=== PATIENT | female | born 2005 | race African-American/Black ===

== ENCOUNTER 2024-02-15 02:54 | Emergency (ER) | payer MEDICAID ==
[~2024-02-15] VITALS: Ht 170.2 cm; Wt 81.9 kg
[2024-02-15] MEDS ORDERED: PANT40TA2 PO (04:13)
[2024-02-15 04:18] VITALS: BP 113/73; PULSE 57; RESP 16; TEMP 97.6; O2SAT 100
== END 2024-02-15 05:00 | disposition home or self-care (01) ==
LOC: ER 02:54
DX: K29.70 Gastritis, unspecified, without bleeding (principal); R11.15 Cyclical vomiting syndrome unrelated to migraine; K59.00 Constipation, unspecified; J45.909 Unspecified asthma, uncomplicated; F12.10 Cannabis abuse, uncomplicated; F10.10 Alcohol abuse, uncomplicated
CPT/HCPCS: 74176

== ENCOUNTER 2024-05-30 08:06 | Emergency (ER) | payer MEDICAID, SELFPAY ==
[~2024-05-30] VITALS: Ht 167.6 cm; Wt 87.2 kg
[~2024-05-30 08:06] MED LIST: PANT40TA2 PO
--- NOTE | 2024-05-30 08:43 | ED.PDOC ---
LEAD NETWORK ARCHITECT HPI Comments 18Y F with PMHx asthma presents to ED for chief complaint nausea and vomiting since this morning. Pt states her LMP was 03/21/2024 and she has been experiencing morning sickness with mild cramping. Pt states she is unable to hold food down. Pt is currently taking vitamins but does not have LEAD NETWORK ARCHITECT yet. Chief Complaint: Nausea/Vomiting Time Seen by MD: 08:22 Reviewed Notes: Medications, Allergies Allergies: Coded Allergies: NO KNOWN ALLERGIES (Unverified , 03/22/14) Home Meds Active Scripts Pantoprazole Sodium Sesquihydr (Protonix) 40 Mg Tab, 40 MG PO DAILY, #30 TAB Prov:LOR SHAH MD 02/15/24 Information Source: Patient Mode of Arrival: Ambulatory Timing: Hours Severity: Mild Vaginal Discharge: None Vaginal Lesions: None Vaginal Mass: None Sexual Activity: Last Consensual Orr: Unknown Control: None History of: Current Blood Type: Unknown Symptoms of Possible : Nausea, Vomiting Associated Signs and Symptoms: N/V Past Medical History PAST MEDICAL HISTORY: Asthma Surgical History: Denies all surgeries ETHANOL QUALITY LEADER History: Denies all ETHANOL QUALITY LEADER Hx Family History Family History: Unknown Social History Smoker: Non-Smoker Alcohol: Denies ETOH Use Drugs: Denies Drug Use Lives In: Home Constitutional: denies: chills, diaphoresis, fatigue, fever, malaise, sweats, weakness, others EENTM: denies: blurred vision, double vision, ear bleeding, ear discharge, ear drainage, ear pain, ear ringing, eye pain, eye redness, hearing loss, mouth pain, mouth swelling, nasal discharge, nose bleeding, nose congestion, nose pain, photophobia, tearing, throat pain, throat swelling, voice changes, others Respiratory: denies: cough, hemoptysis, orthopnea, SOB at rest, shortness of breath, SOB with excertion, stridor, wheezing, others Cardiovascular: denies: chest pain, dizzy spells, diaphoresis, Dyspnea on exertion, edema, irregular heart beat, left arm pain, lightheadedness, palpitations, PND, syncope, others Gastrointestinal: reports: nausea, vomiting; denies: abdomen distended, abdominal pain, blood streaked bowels, constipated, diarrhea, dysphagia, d ifficulty swallowing, hematemesis, melena, poor appetite, poor fluid intake, rectal bleeding, rectal pain, others Genitourinary: reports: ; denies: abnormal vagina bleeding, burning, dyspareunia, dysuria, flank pain, frequency, hematuria, incontinence, pain, vagina discharge, urgency, others Neurological: denies: dizziness, fainting, headache, left sided numbness, left sided weakness, numbness, paresthesia, pre-existing deficit, right sided numbness, right sided weakness, seizure, speech problems, tingling, tremors, weakness, others Musculoskeletal: denies: back pain, gout, joint pain, joint swelling, muscle pain, muscle stiffness, neck pain, others Integumetry: denies: bruises, change in color, change in hair/nails, dryness, laceration, lesions, lumps, rash, wounds, others Allergic/Immunocompromised: denies: Difficulty Healing, Frequent Infections, Hives, Itching, others Hematologic/Lymphatic: denies: anemia, blood clots, easy bleeding, easy bruising, swollen glands, others Endocrine: denies: excessive hunger, excessive sweating, excessive thirst, excessive urination, flushing, intolerance to cold, intolerance to heat, unexplained weight gain, unexplained weight loss, others Psychiatric: denies: anxiety, bipolar disorder, depression, hopeless, panic disorder, schizophrenia, sleepless, suicidal, others All Other Systems: Reviewed and Negative Physical Exam General Appearance: Moderate Distress, Normal HEENT: Normal ENT Inspection, Pharynx Normal, TMs Normal Neck: Full Range of Motion, Non-Tender, Normal, Normal Inspection Respiratory: Chest Non-Tender, Lungs Clear, No Accessory Muscle Use, No Respiratory Distress, Normal Breath Sounds Cardiovascular: No Edema, No JVD, No Murmur, No Gallop, Normal Peripheral Pulses, Regular Rate/Rhythm Breast Exam: Deferred Gastrointestinal: No Organomegaly, Non Tender, No Pulsatile Mass, Normal Bowel Sounds, Soft Genitalia: Deferred Pelvic: Deferred Rectal: Deferred Extremities: No calf tenderness, Normal capillary refill, Normal inspection, Normal range of motion, Non-tender, No pedal edema Musculoskeletal : Apperance: Normal Neurologic: Alert, learning support resource room teacher II-XII nml as Tested, No Motor Deficits, Normal Affect, Normal Mood, No Sensory Deficits Cerebellar Function: Normal Reflexes: Normal Skin: Dry, Normal Color, Warm Peripheral Pulses: 3+ Radial (R), 3+ Radial (L) Lymphatic: No Adenopathy Was a procedure done? Was a procedure done?: No Differential Diagnosis (ETHANOL QUALITY LEADER) Vaginal Bleeding: - Complete, - Incomplete, - Inevitable, - Missed, - Threatened X-Ray, Labs, Meds, VS Vital Signs Date Time Temp Pulse Resp B/P (MAP) Pulse Ox O2 Delivery O2 Flow Rate FiO2 05/30/24 08:18 98.7 72 16 128/78 (95) 99 Lab Test 05/30/24 08:32 05/30/24 08:16 Range/Units Beta HCG, Quantitative 26854.6 H 1.5-4.2 mIU/mL Urine Color Yellow Yellow Urine Clarity Clear Clear Urine pH 6.0 5.0-9.0 Urine Specific [place] 1.027 1.001-1.035 Urine Protein Trace H Negative Urine Ketones 2+ H Negative Urine Blood Negative Negative /uL Urine Nitrite Negative Negative Urine Bilirubin Negative Negative Urine Urobilinogen Normal Negative mg/dL Urine Leukocyte Esterase Negative Negative /uL Urine RBC 3 0 - 4 /hpf Urine WBC 3 0 - 5 /hpf Urine Squamous Epithelial Cells Few <5 /hpf Urine Bacteria None seen None Seen /hpf Urine Mucus Few None Seen Urine Glucose Normal Normal mg/dL [place] [id number] Ph: [phone] DIAGNOSTIC IMAGING Diagnostic Imaging Report : [id number] Signed PATIENT: ASHLEY ROSALES ACCT: [id number] UNIT: [id number] : 2005 LOC: ER ROOM / BED: / AGE / SEX: 18 / F ADM STATUS: REG ER SERVICE [id number] ORDERING PHYSICIAN: CHERYL MILLARD MD PROCEDURE(s): OB4US - OB ULTRASOUND COMP LESS 14WKS REASON: cramping ORDER NUMBER(s): [id number], ACCESSION NUMBER(s): [id number] OB ULTRASOUND <14 WEEKS: HISTORY: cramping TECHNIQUE: Multiple real-time grayscale sonographic images of the pelvis with duplex Doppler color flow, spectral and M-mode analysis. TRANSDUCERS: Transabdominal and endovaginal FINDINGS: The retroverted uterus measures 7.6 x 5.6 x 5.8 cm. The cervix is not well-visualized. Right ovary measures 4.2 x 3.2 x 3.6 with normal Doppler color flow. Thick walled right ovarian cystic structure with ring of fire type vascularity, likely corpus luteum cyst. Left ovary measures 2.9 x 2.8 x 1.2 with normal Doppler color flow IUP single live fetus at 6 weeks 2 days average ultrasound age based on mean crown-rump length of 0.56 cm and gestational sac size of 1.76 cm heart rate detected at 117 beats per minute. Yolk sac is present. Amniotic fluid subjectively within normal limits. Gabriela-gestational space: Unremarkable There is trace free fluid posterior cul-de-sac and the region of the right adne xa. IMPRESSION: 1. IUP single live fetus 6 weeks 2 days AUA corresponding to an SARAH of 01/21/2025. 2. Free fluid adjacent to the right adnexa and in the posterior cul-de-sac. HS:Y ATED BY: MONICA SANTILLAN DO DICTATED DATE/TIME: 05/30/24 103 SIGNED BY: MONICA SANTILLAN DO SIGNED DATE/TIME: 05/30/24 103 CC: Patient alert. Complaining of nausea. Vitals stable. Answering all questions. Mild cramping. She denies bleeding. She is taking her vitamins. Ultrasound reviewed does not show any acute process. Reviewed her previous visit. Explained to the patient. Was told to follow up with her OBGYN. Was told to follow up with her primary care physician. Was told to come back if there is any problem. Time of 1ST Reevaluation: 08:52 Reevaluation 1ST: Unchanged Time of 2ND Reevaluation: 11:20 Reevaluation 2ND: Improved Patient Education/Counseling: Diagnosis, Treatment Family Education/Counseling: No Family Present Departure 1 Departure Time of Disposition: 08:46 Impression: Primary Impression: Normal Qualified Codes: Z34.90 - Encounter for supervision of normal , unspecified, unspecified trimester Additional Impression: Cyclic vomiting syndrome Disposition: 01 HOME / SELF CARE / HOMELESS Condition: Good Discharged With: Self Critical Care Note Critical Care Time?: No Stability Stability form required: No Heart Score Heart Score: Heart Score Response (Comments) Value History N/A 0 EKG N/A 0 Age N/A 0 Risk Factors N/A 0 Troponin N/A 0 Total 0 I personally scribed for CHERYL MILLARD MD ([email or web address]) on 05/30/24 at 08:43. Electronically submitted by Kristi Walton ([facility]). I personally scribed for CHERYL MILLARD MD ([email or web address]) on 05/30/24 at 10:50. Electronically submitted by Kristi Walton ([facility]). CHERYL MILLARD MD May 30, 2024 08:43
[2024-05-30 08:45] LABS: Urine Bacteria None Seen /hpf (None Seen)
[2024-05-30 08:53] LABS: Urine Blood Negative /uL (Negative); Urine Clarity Clear (Clear); Urine Color Yellow (Yellow); Urine Mucus FEW (None Seen); Urine Protein, UAD TRACE (Negative); Urine Specific Gravity 1.027 (1.001-1.035); Urine Urobilinogen Normal (Negative); Urine WBC 3 /hpf (0 - 5)
--- NOTE | 2024-05-30 10:36 | DVH ---
OB ULTRASOUND <14 WEEKS: HISTORY: cramping TECHNIQUE: Multiple real-time grayscale sonographic images of the pelvis with duplex Doppler color f low, spectral and M-mode analysis. TRANSDUCERS: Transabdominal and endovaginal FINDINGS: The retroverted uterus measures 7.6 x 5.6 x 5.8 cm. The cervix is not well-visualized. Right ovary measures 4.2 x 3.2 x 3.6 with normal Doppler color flow. Thick walled right ovarian cyst ic structure with ring of fire type vascularity, likely corpus luteum cyst. Left ovary measures 2.9 x 2.8 x 1.2 with normal Doppler color flow IUP single live fetus at 6 weeks 2 days average ultrasound age based on mean crown-rump length of 0.5 6 cm and gestational sac size of 1.76 cm heart rate detected at 117 beats per minute. Yolk sac is present. Amniotic fluid subjectively within normal limits. Gabriela-gestational space: Unremarkable There is trace free fluid posterior cul-de-sac and the region of the right adnexa. IMPRESSION: 1. IUP single live fetus 6 weeks 2 days AUA corresponding to an SARAH of 01/21/2025. 2. Free fluid adjacent to the right adnexa and in the posterior cul-de-sac. HS:Y
[2024-05-30 11:33] VITALS: BP 134/90; PULSE 57; RESP 16; TEMP 97.8; O2SAT 99
== END 2024-05-30 11:38 | disposition home or self-care (01) ==
LOC: ER 08:06
DX: O99.891 Other specified diseases and conditions complicating pregnancy (principal); R10.2 Pelvic and perineal pain; R11.15 Cyclical vomiting syndrome unrelated to migraine; J45.909 Unspecified asthma, uncomplicated; Z3A.01 Less than 8 weeks gestation of pregnancy; Z79.899 Other long term (current) drug therapy
CPT/HCPCS: 36415; 76801; 76817; 81001; 84702